=== PATIENT | female | born 1980 | race Caucasian/White ===

== ENCOUNTER 2022-07-18 20:10 | Emergency (ER) | payer OTHER, SELFPAY ==
[2022-07-18 20:28] VITALS: BP 134/79; PULSE 66; RESP 20; TEMP 37.1; O2SAT 99
--- NOTE | 2022-07-19 04:17 | ED.WOUNDLAC ---
HPI - Wound/Laceration General Chief Complaint: Wound/Laceration Stated Complaint: bit by dog on face Time Seen by Provider: 07/19/22 04:13 Source: patient Mode of arrival: Ambulatory History of Present Illness HPI narrative: Patient is a healthy 42-year-old female who presents with dog bite to her right eyebrow. She said she bent over to pet her friend's dog when it bit her. Related Data Previous Rx's Medication Instructions Recorded amoxicillin 875 mg-potassium 1 tab PO BID #20 tabs 07/19/22 clavulanate 125 mg tablet Allergies Allergy/AdvReac Type Severity Reaction Status Date / Time No Known Drug Allergies Allergy Verified 07/18/22 20:33 Review of Systems Review of Systems Narrative: GENERAL: Denies chills,fever HEENT: Denies throat pain RESPIRATORY: Denies dyspnea, cough, wheezing CARDIOVASCULAR: Denies chest pain, palpitations GASTROINTESTINAL: Denies nausea, vomiting MUSCULOSKELETAL: Denies extremity pain, injury SKIN: See HPI NEUROLOGIC: Denies weakness, dizziness, headache, numbness 8 point review of systems is negative except for those stated above and HPI Exam Initial Vital Signs Initial Vital Signs: Vital Signs Temperature 98.7 F 07/18/22 20:28 Pulse Rate 66 07/18/22 20:28 Respiratory Rate 20 07/18/22 20:28 Blood Pressure 134/79 07/18/22 20:28 Pulse Oximetry 99 07/18/22 20:28 Oxygen Delivery Method 07/18/22 20:28 GENERAL: Well-appearing, well-nourished and in no acute distress. CARDIOVASCULAR: peripheral pulses in tact, cap refill <2 sec RESPIRATORY: No respiratory distress, speaks in full sentences without difficulty EXTREMITIES: Normal range of motion, no clubbing or edema. Neurovascularly intact NEUROLOGICAL: Cranial nerves II through XII grossly intact. Normal gait and speech. SKIN: 1.5 cm laceration in right eyebrow good skin approximation superficial Procedures Laceration Repair Laceration 1: Description: linear Depth: simple, single layer Skin layer closed with: steri-strips Course Vital Signs Vital signs: Vital Signs - 8 hr 07/18/22 20:28 Temperature 98.7 F Pulse Rate 66 Respiratory Rate 20 Blood Pressure 134/79 Pulse Oximetry 99 Oxygen Delivery Method Room Air MDM - Wound/Laceration MDM Narrative Medical decision making narrative: Patient's laceration/puncture wound is closed easily with Steri-Strips. Irrigated. Patient states that her immunizations are up-to-date as well as dogs. Discharge Plan Departure Patient Disposition: Home Clinical Impression: Dog bite of face Instructions: DI for Laceration Repair-Skin Closure Strips, DI for Dog Bite Activity Restrictions/Additional Instructions: *You have been diagnosed with dog bite *What to do: At this time make sure Steri-Strips stay on for about 3-4 days to allow skin to heal. They should fall off on their own. He may apply antibiotic ointment tet prevent scarring. Monitor for infection. *Continue to take medications as directed Augmentin 875 mg twice a day for 7 days- [facility] [place] Tylenol or ibuprofen as directed if needed for pain *Follow up with your primary care provider in 2-3 days or call [phone] *Return to ER if you should have increasing redness swelling pain or any new, worsening or concerning symptoms Prescriptions: New amoxicillin-pot clavulanate 875-125 mg tablet 1 tab PO BID Qty: 20 0RF Referrals: Bennett Malik MD [Primary Care Provider] -
--- NOTE | 2022-07-19 04:22 | PC.NURSE ---
Patient ambulates out of ED, verbalizing frustration with long wait time. She states she needs to go to work. Declines staying despite being told MD will not be long
--- NOTE | 2022-07-19 04:23 | PC.NURSE ---
Patient returns to ED room after calling on phone outside of ED
[2022-07-19 04:45] VITALS: BP 128/88; PULSE 67; RESP 16; O2SAT 100
== END 2022-07-19 04:46 | disposition home or self-care (01) ==
PROVIDERS: Emergency Provider Emergency Medicine; PCP Specialist
DX: S01.151A Open bite of right eyelid and periocular area, initial encounter (principal); W54.0XXA Bitten by dog, initial encounter
CPT/HCPCS: 99282